=== PATIENT | female | born 2000 | race Caucasian/White ===

== ENCOUNTER 2021-11-21 04:18 | Inpatient (IN) | payer MEDICAID, OTHER ==
[~2021-11-21] VITALS: Ht 162.6 cm; Wt 71.2 kg
[2021-11-21] MEDS ORDERED: OXYTOCIN 30 UNITS/500ML NS PMX 500 ML IV ONE ×2 (07:22→11:47)
[2021-11-21] MEDS ORDERED: BUTORPHANOL TARTRATE 2 MG/ML VIAL ONE (07:22)
[2021-11-21] MEDS ORDERED: LIDOCAINE HCL 1% 20ML VIAL (Pyxis) INJ ONE (11:12)
[2021-11-21 12:46] LABS: CLARITY URINE TURBID (CLEAR); COLOR URINE ORANGE (YELLOW); KETONES URINE 1+ (NEGATIVE); LEUKOCYTE ESTERASE URINE TRACE (NEGATIVE); NITRITE URINE NEGATIVE (NEGATIVE); OCCULT BLOOD URINE 3+ (NEGATIVE); PROTEIN URINE 3+ (NEGATIVE); SPECIFIC GRAVITY URINE 1.012 (1.005-1.030); UROBILINOGEN URINE 0.2 E.U./dL (0.2-1.0)
[2021-11-21] MEDS ORDERED: BISACODYL 10MG SUPP PR PRN (13:15)
[2021-11-21] MEDS ORDERED: ACETAMINOPHEN WITH CODEINE 300/30MG TABLET PO PRN (13:15)
[2021-11-21] MEDS ORDERED: BENZOCAINE/LANOLIN/ALOE VERA SPRAY TOP PRN (13:15)
[2021-11-21] MEDS ORDERED: ACETAMINOPHEN 500MG TABLET PO PRN (13:15)
[2021-11-21] MEDS ORDERED: RHO(D) IMMUNE GLOBULIN 300 MCG/SYR IM SCH (13:15)
[2021-11-21] MEDS ORDERED: LANOLIN OINT 7GM TUBE TOP PRN (13:15)
[2021-11-21] MEDS ORDERED: DIPHENHYDRAMINE 25MG CAPSULE PO PRN (13:15)
[2021-11-21] MEDS ORDERED: HEMORRHOIDAL SUPP PR PRN (13:15)
[2021-11-21] MEDS ORDERED: GLYCERIN/WITCH HAZEL LEAF MEDICATED PAD TOP PRN (13:15)
[2021-11-21 13:22] LABS: *AMPHETAMINES SCREEN URINE NEGATIVE (NEGATIVE); *BARBITURATES SCREEN URINE NEGATIVE (NEGATIVE); *BENZODIAZEPINES SCREEN URINE NEGATIVE (NEGATIVE); *COCAINE SCREEN URINE NEGATIVE (NEGATIVE); CANNABINOID URINE SCREEN NEGATIVE (NEGATIVE); METHADONE URINE SCREEN NEGATIVE (NEGATIVE); OPIATES URINE SCREEN NEGATIVE (NEGATIVE); PHENCYCLIDINE URINE SCREEN NEGATIVE (NEGATIVE)
[2021-11-21 13:50] VITALS: BP 124/75
[2021-11-21] MEDS ORDERED: NALOXONE HCL 0.4MG/ML VIAL IV PRN (14:00)
[2021-11-21] MEDS ORDERED: MISOPROSTOL 200MCG TABLET VG SCH (14:00)
[2021-11-21 14:15] LABS: PARTIAL THROMBOPLASTIN TIME 29.5 sec (23.4-31.0); PROTHROMBIN TIME 10.6 sec (9.6-11.0)
[2021-11-21 14:26] LABS: HEPATITIS B SURFACE ANTIGEN NEGATIVE
[2021-11-21 15:00] VITALS: BP 118/69
[2021-11-21 15:06] LABS: BASOPHILS % 0.5 % (0.0-2.0); EOSINOPHILS % 0.1 % (0.0-5.0); HEMATOCRIT. 30.7 % (36.0-48.0); HEMOGLOBIN. 9.8 g/dL (12.0-16.0); LYMPHOCYTES % 8.4 % (20.0-50.0); MEAN CORPUSCULAR HEMOGLOBIN 22.8 pg (28.0-32.0); MEAN CORPUSCULAR VOLUME 71.9 fL (81.0-99.0); MEAN PLATELET VOLUME 11.5 fl (7.4-10.4); MONOCYTES % 9.4 % (2.0-8.0); NEUTROPHILS % 81.6 % (40.0-76.0); PLATELET 136 x1000/uL (130-400); RED BLOOD CELL COUNT 4.27 mill/uL (4.2-5.4); RED CELL DISTRIBUTION WIDTH 17.4 % (11.6-14.6)
[2021-11-21] MEDS ORDERED: PENICILLIN G POTASSIUM 2.5 MMU in DEXTROSE 5% WATER 50 ML IV SCH (16:00)
[2021-11-21] MEDS: [UNRECOGNIZED DRUG - OTHER] PO SCH ×2 (17:00→21:00)
[2021-11-21] MEDS: ALUMINUM HYDROXIDE PO SCH ×2 (17:00→21:00)
[2021-11-21] MEDS: SIMETHICONE PO SCH ×2 (17:00→21:00)
[2021-11-21] MEDS: IBUPROFEN 800MG TABLET PO PRN (18:47)
[2021-11-21] MEDS ORDERED: DOCUSATE SODIUM 100MG CAPSULE PO SCH (21:00)
[2021-11-21 22:02] VITALS: BP 118/50
[2021-11-22] MEDS: IBUPROFEN 800MG TABLET PO PRN ×3 (03:50→21:56)
[2021-11-22 04:00] VITALS: BP 119/64
[2021-11-22] MEDS: [UNRECOGNIZED DRUG - OTHER] PO SCH (09:00)
[2021-11-22] MEDS: ALUMINUM HYDROXIDE PO SCH (09:00)
[2021-11-22] MEDS: SIMETHICONE PO SCH (09:00)
[2021-11-22] MEDS ORDERED: PRENATAL VIT/FE FUMARATE/FA TABLET PO SCH (09:00)
[2021-11-22] MEDS: FERROUS SULFATE 325MG TABLET PO SCH (09:00)
[2021-11-22 09:30] VITALS: BP 125/70
[2021-11-22 21:00] VITALS: BP 116/71
[2021-11-22 21:40] LABS: BASOPHILS % 0.5 % (0.0-2.0); EOSINOPHILS % 0.2 % (0.0-5.0); HEMATOCRIT. 32.8 % (36.0-48.0); HEMOGLOBIN. 10.4 g/dL (12.0-16.0); LYMPHOCYTES % 29.9 % (20.0-50.0); MEAN CORPUSCULAR VOLUME 72.4 fL (81.0-99.0); MEAN PLATELET VOLUME 10.2 fl (7.4-10.4); MONOCYTES % 10.8 % (2.0-8.0); NEUTROPHILS % 58.6 % (40.0-76.0); PLATELET 112 x1000/uL (130-400); RED BLOOD CELL COUNT 4.53 mill/uL (4.2-5.4); RED CELL DISTRIBUTION WIDTH 17.7 % (11.6-14.6)
[2021-11-23] MEDS: IBUPROFEN 800MG TABLET PO PRN (04:00)
[2021-11-23 04:30] VITALS: BP 112/71
[2021-11-23] MEDS ORDERED: IBUP-2030 PO (07:27)
[2021-11-23] MEDS ORDERED: FERR-63 PO (07:27)
[2021-11-23] MEDS ORDERED: PNV1CAPS21 MT (07:27)
[2021-11-23 08:30] VITALS: BP 106/69
[2021-11-23] MEDS: FERROUS SULFATE 325MG TABLET PO SCH (09:00)
[2021-11-23] MEDS: ALUMINUM HYDROXIDE PO SCH (09:00)
[2021-11-23] MEDS: SIMETHICONE PO SCH (09:00)
[2021-11-23] MEDS: [UNRECOGNIZED DRUG - OTHER] PO SCH (09:00)
== END 2021-11-23 13:05 | disposition home or self-care (01) | DRG 560 ==
LOC: ER 12:10 → 8 EST LDRP 12:11
PROVIDERS: ADMIT Specialist; ATTEND Specialist
PROC: 10E0XZZ Delivery of Products of Conception, External Approach (ICD-10-PCS; principal; 2021-11-21)
PROC: 0W8NXZZ Division of Female Perineum, External Approach (ICD-10-PCS; 2021-11-21)
DX: O98.52 Other viral diseases complicating childbirth (principal); Z37.0 Single live birth; U07.1 COVID-19; O99.02 Anemia complicating childbirth; O99.52 Diseases of the respiratory system complicating childbirth; J45.909 Unspecified asthma, uncomplicated; Z3A.38 38 weeks gestation of pregnancy
CPT/HCPCS: 36415; 80305; 81003; 85025; 86592; 86703; 86762; 86850; 86900; 87340; 99281; 99285; G0378; J0595; J2540; J3490; J7060; A4315; J2590